=== PATIENT | female | born 1940 | race Caucasian/White ===

== ENCOUNTER → 2016-09-19 | Outpatient (CLI) | payer MEDICARE, MEDICAID ==
[2016-09-19 13:39] LABS: ABSOLUTE EOSINOPHILS # (AUTO) 0.1 10^3/uL (0.0-0.6); ABSOLUTE LYMPHOCYTES (AUTO) 3.7 10^3/uL (0.5-4.7); ABSOLUTE MONOCYTES (AUTO) 0.7 10^3/uL (0.1-1.4); ABSOLUTE NEUT (AUTO) 4.3 10^3/uL (1.7-8.2); BASOPHILS % (AUTO) 0.5 % (0-2); HEMATOCRIT 42.8 % (36.0-47.0); HEMOGLOBIN 13.6 g/dL (12.0-15.5); LYMPHOCYTES % (AUTO) 41.9 % (13-45); MEAN CORPUSCULAR HGB CONC 31.7 g/dL (32.0-36.0); MEAN CORPUSCULAR VOLUME 82 fl (80-97); MONOCYTES % (AUTO) 7.9 % (3-13); RED BLOOD COUNT 5.21 10^6/uL (3.72-5.28); RED CELL DISTRIBUTION WIDTH 14.5 % (11.5-14.0); SEGMENTED NEUTROPHILS % (AUTO) 48.7 % (42-78); WHITE BLOOD COUNT 8.8 10^3/uL (4.0-10.5)
[2016-09-19 14:03] LABS: ALANINE AMINOTRANSFERASE 24 U/L (9-52); ALBUMIN 4.5 g/dL (3.5-5.0); ALKALINE PHOSPHATASE 40 U/L (38-126); ANION GAP 13 (5-19); ASPARTATE AMINO TRANSFERASE 26 U/L (14-36); BILIRUBIN,DIRECT 0.4 mg/dL (0.0-0.4); BILIRUBIN,TOTAL 0.6 mg/dL (0.2-1.3); BLOOD UREA NITROGEN 28 mg/dL (7-20); CALCIUM 9.9 mg/dL (8.4-10.2); CARBON DIOXIDE 32 mmol/L (22-30); CHLORIDE 97 mmol/L (98-107); CREATININE RESULT 0.87 mg/dL (0.52-1.25); GLUCOSE 167 mg/dL (75-110); SODIUM 142.1 mmol/L (137-145)
== END ==
LOC: OD 12:15
PROVIDERS: ATTEND Orthopaedic Surgery Sports Medicine
DX: G56.02 Carpal tunnel syndrome, left upper limb (principal); Z11.2 Encounter for screening for other bacterial diseases; I10 Essential (primary) hypertension
CPT/HCPCS: 36415; 80053; 85025; 87070

== ENCOUNTER → 2017-05-03 | Outpatient (CLI) | payer MEDICARE, MEDICAID ==
--- NOTE | 2017-05-03 17:44 | WOMENS IMAGING REPORT ---
EXAM DESCRIPTION: 3D DX MAMMO BILAT; U/S BREAST UNILAT LIMITED COMPLETED DATE/TIME: 05/03/2017 10:11 am; 05/03/2017 11:38 am REASON FOR STUDY: SUBAREOLAR MASS OF L BREAST; N63.42; LEFT BREAST; N63.42 N63.42 UNSPECIFIED LUMP IN LEFT BREAST, SUBAREOLAR COMPARISON: Multiple since 2013 TECHNIQUE: Standard craniocaudal and mediolateral oblique views of each breast recorded using digita l acquisition and breast tomosynthesis. Cone compression left breast images, in the retroareolar region. Left breast 90 mediolateral view. Left breast ultrasound LIMITATIONS: None. FINDINGS: RIGHT BREAST MASSES: No suspicious masses. CALCIFICATIONS: No new or suspicious calcifications. ARCHITECTURAL DISTORTION: None. DEVELOPING DENSITY: None. ASYMMETRY: None noted. OTHER: No other significant findings. LEFT BREAST MASSES: 6 to 7 mm nodule in the left retroareolar region about the 7 to 8 o'clock position, with a si ngle microcalcification present. CALCIFICATIONS: No new or suspicious calcifications. ARCHITECTURAL DISTORTION: None. DEVELOPING DENSITY: None. ASYMMETRY: None noted. OTHER: Old stereotactic biopsy clip in the deep 6 o'clock position Read with the assistance of CAD: .[facility] - R2 Cenova Version 1.3 .[facility] - R2 Cenova Version 1.3 .[facility] - R2 Cenova Version 2.4 .[facility] [place] R2 Cenova Version 2.4 .[facility] - R2 Manager Animation Version 9.2 Left breast ultrasound: Ultrasound of the left retroareolar region was performed. Just deep to the skin surface, an anechoic cystic structure 6 mm in size is present with minimal internal debris. No internal color flow. Sin gle shadowing punctate calcification correlates with mammogram. This may represent a small hypoechoi c papilloma, short segment of dilated retroareolar duct, or a tiny skin related cyst such as a sebace ous cyst. Excisional biopsy recommended. IMPRESSION: No mammographic evidence for malignancy right breast. 6 to 7 mm complex cyst just deep to the skin surface left periareolar region. This is indeterminate for malignancy, and could be a short segment of dilated duct or a hypoechoic papilloma. A sebaceous cyst is also possible. Excisional biopsy is recommended. BREAST DENSITY: b. There are scattered areas of fibroglandular density. BIRAD: 4A-Suspicious abnormality: Lesion which may require intervention with low suspicion for penelope mccullough. RECOMMENDATION: RECOMMENDED FOLLOW UP: Palpable lesion could be surgically excised for biopsy. SPECIFIC INTERVENTION/IMAGING/CONSULTATION RECOMMENDED:Surgical consultation for excisional biopsy re commended COMMUNICATION:Patient notified by letter COMMENT: The patient has been notified of the results by letter per SA requirements. Additional no tification policies are in place for contacting patient with suspicious or incomplete findings. Quality ID #[id number]: The [employer] recommends an annual screening mammogram for women aged 40 years or over. This facility utilizes a reminder system to ensure that all patients receive reminder letters, and/or direct phone calls for appointments. This includes reminders for routine scr eening mammograms, diagnostic mammograms, or other Breast Imaging Interventions when appropriate. Th is patient will be placed in the appropriate reminder system. The [employer] (ACR) has developed recommendations for screening MRI of the breast s in certain patient populations, to be used in conjunction with mammography. Breast MRI surveillanc e may be appropriate for women with more than 20% lifetime risk of developing breast cancer as deter mined by genetic testing, significant family history of the disease, or history of mantle radiation f or Hodgkins Disease. ACR Practice Guidelines 2008. DBT Technology DBT is a type of tomographic mammography. With conventional mammography, overlapping breast tissue ma y make lesions difficult to detect, even with good compression. DBT uses an x-ray tube that rotates a round the breast, taking images at different angles. These images are then combined to create thin sl ices of the breast that the radiologist can view as a 3D reconstruction. The Springpad unit can perform full-field digital mammograms (2D imaging); or DBT (3D imaging); or both, in a combination mode that quickly performs both the mammogram and the tomosynthesis scan while the breast is still compressed. PQRS 6045F: Fluoroscopic imaging is not utilized for breast tomosynthesis. TECHNICAL DOCUMENTATION: FINDING NUMBER: (1) ASSESSMENT: (1) JOB ID: [id number] [employer] All Rights Reserved
--- NOTE | 2017-05-04 23:42 | WOMENS IMAGING REPORT ---
EXAM DESCRIPTION: 3D DX MAMMO BILAT; U/S BREAST UNILAT LIMITED COMPLETED DATE/TIME: 05/03/2017 10:11 am; 05/03/2017 11:38 am REASON FOR STUDY: SUBAREOLAR MASS OF L BREAST; N63.42; LEFT BREAST; N63.42 N63.42 UNSPECIFIED LUMP IN LEFT BREAST, SUBAREOLAR COMPARISON: Multiple since 2013 TECHNIQUE: Standard craniocaudal and mediolateral oblique views of each breast recorded using digita l acquisition and breast tomosynthesis. Cone compression left breast images, in the retroareolar region. Left breast 90 mediolateral view. Left breast ultrasound LIMITATIONS: None. FINDINGS: RIGHT BREAST MASSES: No suspicious masses. CALCIFICATIONS: No new or suspicious calcifications. ARCHITECTURAL DISTORTION: None. DEVELOPING DENSITY: None. ASYMMETRY: None noted. OTHER: No other significant findings. LEFT BREAST MASSES: 6 to 7 mm nodule in the left retroareolar region about the 7 to 8 o'clock position, with a si ngle microcalcification present. CALCIFICATIONS: No new or suspicious calcifications. ARCHITECTURAL DISTORTION: None. DEVELOPING DENSITY: None. ASYMMETRY: None noted. OTHER: Old stereotactic biopsy clip in the deep 6 o'clock position Read with the assistance of CAD: .[facility] - R2 Cenova Version 1.3 .[facility] Imaging - R2 Cenova Version 1.3 .[facility] Imaging - R2 Cenova Version 2.4 .[facility] [place] Cenova Version 2.4 .[facility] - R2 Trolley Cleaner Version 9.2 Left breast ultrasound: Ultrasound of the left retroareolar region was performed. Just deep to the skin surface, an anechoic cystic structure 6 mm in size is present with minimal internal debris. No internal color flow. Sin gle shadowing punctate calcification correlates with mammogram. This may represent a small hypoechoi c papilloma, short segment of dilated retroareolar duct, or a tiny skin related cyst such as a sebace ous cyst. Excisional biopsy recommended. IMPRESSION: No mammographic evidence for malignancy right breast. 6 to 7 mm complex cyst just deep to the skin surface left periareolar region. This is indeterminate for malignancy, and could be a short segment of dilated duct or a hypoechoic papilloma. A sebaceous cyst is also possible. Excisional biopsy is recommended. BREAST DENSITY: b. There are scattered areas of fibroglandular density. BIRAD: 4A-Suspicious abnormality: Lesion which may require intervention with low suspicion for penelope mccullough. RECOMMENDATION: RECOMMENDED FOLLOW UP: Palpable lesion could be surgically excised for biopsy. SPECIFIC INTERVENTION/IMAGING/CONSULTATION RECOMMENDED:Surgical consultation for excisional biopsy re commended COMMUNICATION:Patient notified by letter COMMENT: The patient has been notified of the results by letter per SA requirements. Additional no tification policies are in place for contacting patient with suspicious or incomplete findings. Quality ID #[id number]: The [employer] recommends an annual screening mammogram for women aged 40 years or over. This facility utilizes a reminder system to ensure that all patients receive reminder letters, and/or direct phone calls for appointments. This includes reminders for routine scr eening mammograms, diagnostic mammograms, or other Breast Imaging Interventions when appropriate. Th is patient will be placed in the appropriate reminder system. The [employer] (ACR) has developed recommendations for screening MRI of the breast s in certain patient populations, to be used in conjunction with mammography. Breast MRI surveillanc e may be appropriate for women with more than 20% lifetime risk of developing breast cancer as deter mined by genetic testing, significant family history of the disease, or history of mantle radiation f or Hodgkins Disease. ACR Practice Guidelines 2008. DBT Technology DBT is a type of tomographic mammography. With conventional mammography, overlapping breast tissue ma y make lesions difficult to detect, even with good compression. DBT uses an x-ray tube that rotates a round the breast, taking images at different angles. These images are then combined to create thin sl ices of the breast that the radiologist can view as a 3D reconstruction. The Fliptop unit can perform full-field digital mammograms (2D imaging); or DBT (3D imaging); or both, in a combination mode that quickly performs both the mammogram and the tomosynthesis scan while the breast is still compressed. PQRS 6045F: Fluoroscopic imaging is not utilized for breast tomosynthesis. TECHNICAL DOCUMENTATION: FINDING NUMBER: (1) ASSESSMENT: (1) JOB ID: [id number] [employer]- All Rights Reserved
== END ==
LOC: WI 09:28
PROVIDERS: ATTEND Physician Assistant
DX: N63.42 Unspecified lump in left breast, subareolar (principal)
CPT/HCPCS: 76642; 77066; G0279; 77062

== ENCOUNTER → 2017-06-26 | Outpatient (CLI) | payer MEDICARE, MEDICAID ==
[2017-06-26 15:48] LABS: ABSOLUTE BASOPHILS # (AUTO) 0.1 10^3/uL (0.0-0.2); ABSOLUTE EOSINOPHILS # (AUTO) 0.1 10^3/uL (0.0-0.6); ABSOLUTE LYMPHOCYTES (AUTO) 3.8 10^3/uL (0.5-4.7); ABSOLUTE MONOCYTES (AUTO) 0.9 10^3/uL (0.1-1.4); ABSOLUTE NEUT (AUTO) 4.4 10^3/uL (1.7-8.2); BASOPHILS % (AUTO) 0.9 % (0-2); EOSINOPHILS % (AUTO) 1.2 % (0-6); HEMATOCRIT 39.9 % (36.0-47.0); HEMOGLOBIN 13.2 g/dL (12.0-15.5); LYMPHOCYTES % (AUTO) 41.3 % (13-45); MEAN CORPUSCULAR HEMOGLOBIN 26.8 pg (27.0-33.4); MEAN CORPUSCULAR VOLUME 81 fl (80-97); MONOCYTES % (AUTO) 9.7 % (3-13); PLATELET COUNT 245 10^3/uL (150-450); RED BLOOD COUNT 4.92 10^6/uL (3.72-5.28); RED CELL DISTRIBUTION WIDTH 14.8 % (11.5-14.0); SEGMENTED NEUTROPHILS % (AUTO) 46.9 % (42-78); TOTAL CELLS COUNTED % (AUTO) 100 %; WHITE BLOOD COUNT 9.3 10^3/uL (4.0-10.5)
[2017-06-26 16:09] LABS: ALANINE AMINOTRANSFERASE 31 U/L (9-52); ALBUMIN 4.5 g/dL (3.5-5.0); ALKALINE PHOSPHATASE 34 U/L (38-126); ANION GAP 14 (5-19); ASPARTATE AMINO TRANSFERASE 35 U/L (14-36); BILIRUBIN,DIRECT 0.6 mg/dL (0.0-0.4); BILIRUBIN,TOTAL 0.7 mg/dL (0.2-1.3); BLOOD UREA NITROGEN 43 mg/dL (7-20); CALCIUM 9.6 mg/dL (8.4-10.2); CARBON DIOXIDE 27 mmol/L (22-30); CHLORIDE 104 mmol/L (98-107); GLUCOSE 50 mg/dL (75-110); POTASSIUM 4.8 mmol/L (3.6-5.0); SODIUM 144.5 mmol/L (137-145); TOTAL PROTEIN 7.5 g/dL (6.3-8.2)
--- NOTE | 2017-06-26 23:43 | EKG REPORT ---
SEVERITY:- NORMAL ECG - SINUS RHYTHM : Confirmed by: Marjan Pickard 26-Jun-2017 23:42:33
== END ==
LOC: OD 14:35
PROVIDERS: ATTEND Orthopaedic Surgery Sports Medicine
DX: I10 Essential (primary) hypertension (principal); Z11.2 Encounter for screening for other bacterial diseases
CPT/HCPCS: 36415; 80053; 85025; 87070; 93005; 93010

== ENCOUNTER 2017-09-11 11:19 | Emergency (ER) | payer MEDICARE, MEDICAID ==
[2017-09-11 11:53] LABS: ABSOLUTE BASOPHILS # (AUTO) 0.1 10^3/uL (0.0-0.2); ABSOLUTE EOSINOPHILS # (AUTO) 0.1 10^3/uL (0.0-0.6); ABSOLUTE LYMPHOCYTES (AUTO) 3.2 10^3/uL (0.5-4.7); ABSOLUTE MONOCYTES (AUTO) 1.2 10^3/uL (0.1-1.4); ABSOLUTE NEUT (AUTO) 7.9 10^3/uL (1.7-8.2); HEMATOCRIT 38.2 % (36.0-47.0); HEMOGLOBIN 12.6 g/dL (12.0-15.5); LYMPHOCYTES % (AUTO) 25.5 % (13-45); MEAN CORPUSCULAR HEMOGLOBIN 26.6 pg (27.0-33.4); MEAN CORPUSCULAR HGB CONC 32.9 g/dL (32.0-36.0); MEAN CORPUSCULAR VOLUME 81 fl (80-97); MONOCYTES % (AUTO) 9.7 % (3-13); PLATELET COUNT 269 10^3/uL (150-450); RED BLOOD COUNT 4.72 10^6/uL (3.72-5.28); RED CELL DISTRIBUTION WIDTH 14.4 % (11.5-14.0); SEGMENTED NEUTROPHILS % (AUTO) 62.8 % (42-78); TOTAL CELLS COUNTED % (AUTO) 100 %; WHITE BLOOD COUNT 12.6 10^3/uL (4.0-10.5)
[2017-09-11 11:59] LABS: INTERNATIONAL RATION (INR) 0.83; PROTHROMBIN TIME 11.8 SEC (11.4-15.4)
[2017-09-11 12:00] LABS: PARTIAL THROMBOPLASTIN TIME 27.7 SEC (23.5-35.8)
--- NOTE | 2017-09-11 12:01 | ER Document Report ---
ED Neuro Symptoms/Deficit - General Chief Complaint: S/S of Possible Stroke Stated Complaint: PAIN IN RIGHT SIDE, NAUSEOUS Time Seen by Provider: 09/11/17 11:40 Mode of Arrival: Ambulatory Information source: Patient, Relative Notes: Patient is a 77-year-old female who presents to the ER today for numbness and tingling that has increased to her right hand and leg along with some nausea and lightheadedness this morning around 10:30 AM. Patient had strokelike symptoms of heaviness and numbness and tingling on the right side of her body one week ago, went to [facility], was admitted and had carotid ultrasound as well as MRI which were all negative for stroke. Patient states that that was all resolving whenever this morning around 1030 she had some numbness and tingling the increased again to that same side. She denies any weakness but admits to some heaviness of the right arm and leg. 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 She denies any vomiting. She does admit to right-sided headache which she also had 1 week ago when she was admitted at [facility]. Patient has a history of high blood pressure, high cholesterol. They did increase her aspirin to 325 mg when she was discharged from [facility]. Patient states that all symptoms at this time are resolving since this morning. TRAVEL OUTSIDE OF THE [place] IN LAST 30 DAYS: No - Related Data Allergies/Adverse Reactions: diazepam [From Valium] Allergy (Verified 09/11/17 11:20) hydromorphone [From Dilaudid] Allergy (Verified 09/11/17 11:20) promethazine [From Phenergan] Allergy (Verified 09/11/17 11:20) Past Medical History - General Information source: Patient - Social History Smoking Status: Never Smoker Family History: Reviewed & Not Pertinent Review of Systems - Review of Systems Constitutional: No symptoms reported EENT: No symptoms reported Cardiovascular: No symptoms reported Respiratory: No symptoms reported Gastrointestinal: No symptoms reported Genitourinary: No symptoms reported Female Genitourinary: No symptoms reported Musculoskeletal: No symptoms reported Skin: No symptoms reported Hematologic/Lymphatic: No symptoms reported Neurological/Psychological: See HPI Physical Exam - Vital signs Vitals: Pulse Ox 95 09/11/17 11:35 - Notes Notes: PHYSICAL EXAMINATION: GENERAL: Well-appearing and in no acute distress. HEAD: Atraumatic, normocephalic. EYES: Pupils equal round and reactive to light, extraocular movements intact, sclera anicteric, conjunctiva are normal. ENT: ear canals without erythema or foreign body, TMs pearly tilley with good bony landmarks, nares patent, oropharynx clear without exudates. Moist mucous membranes. NECK: Normal range of motion, supple without lymphadenopathy LUNGS: CTAB and equal. No wheezes rales or rhonchi. HEART: Regular rate and rhythm without murmurs ABDOMEN: Soft, no tenderness. No guarding, no rebound BACK: no vertebral tenderness, normal ROM GI/: no CVA tenderness EXTREMITIES: Normal range of motion, no pitting edema. No cyanosis. NEUROLOGICAL: Cranial nerves grossly intact. Normal sensory/motor exams. Good and equal strength bilaterally, Kernig and Brudzinski's signs negative, Romberg' s test normal, normal heel to fernandes testing PSYCH: Normal mood, normal affect. SKIN: Warm, Dry, normal turgor, no rashes or lesions noted Course - Re-evaluation Re-evalutation: 09/11/17 13:24 Patient has a completely normal neurological exam, good and equal strength bilaterally, normal Romberg testing, she states that symptoms are resolving. CAT scan of the head was negative for any acute pathology again today. Lab work is all unremarkable. I did give patient the option of being admitted for observation for strokelike symptoms and possible TIA here but she declines stating "I have somebody who can watch me all the time at home and I would rather go home." Patient lives 20 minutes away from here and was encouraged to call 911 or have someone bring her immediately if she gets worsening symptoms. I also advised that she have the people she lives with wake her up multiple times throughout the night to check on her mental status and she and daughter both agree to this. - Vital Signs Vital signs: Temp Pulse Resp BP Pulse Ox 74 25 H 147/85 H 98 09/11/17 11:45 09/11/17 11:45 09/11/17 11:45 09/11/17 11:45 - Laboratory Result Diagrams: 09/11/17 11:46 09/11/17 11:46 Laboratory results interpreted by me: 06/04/18 11:46 WBC 12.6 H MCH 26.6 L RDW 14.4 H ED NIH Stroke Scale - NIH Stroke Scale *: 1. NIH scale should be completed with appropriate accompanying assessment tools. *: 2. The NIH should reflect what the patient is capable of doing and should not be coached by the clinician. 1a. Level of Consciousness: 0=Alert;keenly responsive -: 1=Drowsy -: 2=Obtunded -: 3=Coma/unresponsive or reflex to noxious stimuli. 1a. Responses: 0 1b. Orientation Questions: a. What month is it? -: b. How old are you? -: 0=Answers both questions correctly. -: 1=Answers one question correctly or patient is intubated or has orotracheal trauma. -: 2=Answers neither question correctly. 1b. Responses: 0 1c. Response to commands: a. Open and close eyes? -: b. Chief Contract Officer and release hand? -: Credit is given despite weakness. Demonstration of task is permitted. Substitute command if hands cannot be used. -: 0=Performs both tasks correctly -: 1=Performs one task correctly -: 2=Performs neither task correctly 1c. Responses: 0 2. Gaze: Establish eye contact and instruct patient to "Follow my finger" -: 0=Normal -: 1=Partial gaze palsy. Gaze is abnormal in one or both eyes, but where forced deviation or total gaze paresis is not present. -: 2=Forced deviation or total gaze paresis. 2. Responses: 0 3. Visual Pacheco: Sees fingers in all four quadrants. -: 0=No visual loss. -: 1=Partial hemianopsia. -: 2=Complete hemianopsia. -: 3=Bilateral hemianopsia (including Cortical blindness) 3. Responses: 0 4. Facial Movement: Instruct patient to: -: a. Show me your teeth -: b. Raise your eyebrows -: c. Close your eyes -: d. Smile -: 0=Normal symmetrical movement -: 1=Minor paralysis (flattened nasolabial fold, asymmetry on smiling). -: 2=Partial paralysis (total or near total paralysis of lower face). -: 3=Complete paralysis of upper and lower face 4. Responses: 0 5. Motor functions (left arm): Alternate sides and extend each arm with palms down (90 degrees if sitting or 45 degrees for supine). -: 0=No drift;limb holds for full 10 seconds. -: 1=Drift; limb holds but drifts down before full 10 seconds, but does not hit bed. -: 2=Some effort against gravity; limb cannot get to or maintain position. -: 3=No effort against gravity; limb falls. -: 4=No movement. -: UN=Amputation, joint fusion, explain in comments. 5. Responses (left arm): 0 5. Motor Functions (right arm): Alternate sides and extend each arm with palms down (90 degrees if sitting or 45 degrees for supine). -: 0=No drift;limb holds for full 10 seconds. -: 1=Drift; limb holds but drifts down before full 10 seconds, but does not hit bed. -: 2=Some effort against gravity; limb cannot get to or maintain position. -: 3=No effort against gravity; limb falls. -: 4=No movement. -: UN=Amputation, joint fusion, explain in comments. 5. Responses (right arm): 0 6. Motor Functions (left leg): With patient lying supine, alternate sides and extend each leg (30 degrees always while supine). -: 0=No drift, leg holds position for full 5 seconds -: 1=Drift; leg falls before full 5 seconds but does not hit bed. -: 2=Some effort against gravity, leg falls to bed but some effort against gravity. -: 3=No effort against gravity, leg falls to bed immediately. -: 4=No movement. -: UN=Amputation, joint fusion; explain in comments. 6. Responses (left leg): 0 6. Motor Functions (right leg): With patient lying supine, alternate sides and extend each leg (30 degrees always while supine). -: 0=No drift, leg holds position for full 5 seconds -: 1=Drift; leg falls before full 5 seconds but does not hit bed. -: 2=Some effort against gravity, leg falls to bed but some effort against gravity. -: 3=No effort against gravity, leg falls to bed immediately. -: 4=No movement. -: UN=Amputation, joint fusion; explain in comments. 6. Responses (right leg): 0 7. Limb Ataxia: With eyes open instruct patient to: -: a. "Touch your finger to your nose". -: b. "Touch your heel to your fernandes" -: 0=Absent -: 1=Present in one limb. -: 2=Present in two limbs. -: UN=Amputation or joint fusion; explain in comments. 7. Responses: 0 8. Sensory: Test sensation using pinprick or noxious stimuli. Test as many body parts as possible. -: 0=Normal;no sensory loss -: 1=Mile to moderate sensory loss (patient feels pin prick but is less sharp on affected side). -: 2=Severe or total sensory loss. 8. Responses: 0 9. Best Language: Instruct patient to: -: a. "Describe what you see in this picture." -: b. "Name the items in this picture." -: c. "Read these sentences." -: 0=No aphasia, normal -: 1=Mild to moderate aphasia. -: 2=Severe aphasia -: 3=Mute, global aphasia, no usable speech or auditory comprehension. 9. Responses: 0 10. Articulation, Dysarthia: Instruct patient to: -: "Read these words" or "Repeat these words" -: 0=Normal -: 1=Mild to moderate; patient may slur some words but can be understood without difficulty. -: 2=Severe; patients speech so slurred as to be unintelligible in the absence of dysphasia. -: UN=Intubated or other physical barrier, explain in comments. 10. Responses: 0 11. Extinction or inattention: 0=No abnormality -: 1= Visual, tactile, auditory, spatial, or personal inattention or extinction to bilateral simulation in one or the sensory modalities. -: 2=Profound tano-inattention or tano-inattention to more than one modality; does not recognize own hand. 11. Responses: 0 Total Score: 0 Discharge - Discharge Clinical Impression: Stroke-like episode Condition: Stable Disposition: HOME, SELF-CARE Additional Instructions: Return immediately for any new or worsening symptoms. Follow up with primary care provider, call tomorrow to make followup appointment. Referrals: LINN IBARRA MD [Primary Care Provider] - Follow up as needed
--- NOTE | 2017-09-11 12:12 | RADIOLOGY REPORT (SQ) ---
EXAM DESCRIPTION: CT HEAD WITHOUT COMPLETED DATE/TIME: 09/11/2017 11:35 am REASON FOR STUDY: right side weakness COMPARISON: None. TECHNIQUE: Axial images acquired through the brain without intravenous contrast. Images reviewed wi th bone, brain and subdural windows. Additional sagittal and coronal reconstructions were generated. Images stored on PACS. All CT scanners at this facility use dose modulation, iterative reconstruction, and/or weight based d osing when appropriate to reduce radiation dose to as low as reasonably achievable (ALARA). [facility]: Dose Right [facility]: CareDose [facility]: Dose Right [facility]: Teradose 4D [facility]: Smart [employer] RADIATION DOSE: CT Rad equipment meets quality standard of care and radiation dose reduction techniq ues were employed. CTDIvol: 53.2 mGy. DLP: 991 mGy-cm. mGy. LIMITATIONS: None. FINDINGS: VENTRICLES: Normal size and contour. CEREBRUM: No masses. No hemorrhage. No midline shift. No evidence for acute infarction. Areas of l ow density in the white matter most likely chronic small vessel ischemic changes. CEREBELLUM: No masses. No hemorrhage. No alteration of density. No evidence for acute infarction. EXTRAAXIAL SPACES: No fluid collections. No masses. ORBITS AND GLOBE: No intra- or extraconal masses. Normal contour of globe without masses. CALVARIUM: No fracture. PARANASAL SINUSES: No fluid or mucosal thickening. SOFT TISSUES: No mass or hematoma. OTHER: No other significant finding. IMPRESSION: MILD CHRONIC MICROVASCULAR ISCHEMIA. NO ACUTE IMAGING FINDINGS IN THE BRAIN. EVIDENCE OF ACUTE STROKE: NO. COMMENT: Findings were discussed with YAJAIRA Acevedo, at 1206 hours on this date. Quality ID # [id number]: Final reports with documentation of one or more dose reduction techniques (e.g., Au tomated exposure control, adjustment of the mA and/or kV according to patient size, use of iterative reconstruction technique) TECHNICAL DOCUMENTATION: JOB ID: [id number] [employer]- All Rights Reserved Reading location - IP/workstation name: [email or web address]
--- NOTE | 2017-09-11 12:15 | RADIOLOGY REPORT (SQ) ---
EXAM DESCRIPTION: CHEST SINGLE VIEW COMPLETED DATE/TIME: 09/11/2017 11:44 am REASON FOR STUDY: stroke s/s COMPARISON: None. EXAM PARAMETERS: NUMBER OF VIEWS: One view. TECHNIQUE: Single frontal radiographic view of the chest acquired. RADIATION DOSE: NA LIMITATIONS: None. FINDINGS: LUNGS AND PLEURA: Mild chronic interstitial changes are present. There is no infiltrate o r effusion. There is no mass. MEDIASTINUM AND HILAR STRUCTURES: No masses. Contour normal. HEART AND VASCULAR STRUCTURES: Heart normal in size. Normal vasculature. BONES: No acute findings. HARDWARE: Sternotomy wires. OTHER: No other significant finding. IMPRESSION: Mild chronic lung changes with no acute cardiopulmonary disease. TECHNICAL DOCUMENTATION: JOB ID: [id number] [employer]- All Rights Reserved Reading location - IP/workstation name: [email or web address]
[2017-09-11 12:16] LABS: ALANINE AMINOTRANSFERASE 29 U/L (9-52); ALBUMIN 4.1 g/dL (3.5-5.0); ALKALINE PHOSPHATASE 40 U/L (38-126); ANION GAP 11 (5-19); ASPARTATE AMINO TRANSFERASE 35 U/L (14-36); BILIRUBIN,DIRECT 0.6 mg/dL (0.0-0.4); BILIRUBIN,TOTAL 0.6 mg/dL (0.2-1.3); BLOOD UREA NITROGEN 27 mg/dL (7-20); CALCIUM 9.5 mg/dL (8.4-10.2); CARBON DIOXIDE 27 mmol/L (22-30); CHLORIDE 103 mmol/L (98-107); CREATINE KINASE 58 U/L (30-135); GLUCOSE 280 mg/dL (75-110); POTASSIUM 5.3 mmol/L (3.6-5.0); TOTAL PROTEIN 7.1 g/dL (6.3-8.2)
[2017-09-11 12:28] LABS: CREATINE KINASE MB 1.75 ng/mL (<4.55)
[2017-09-11 12:43] LABS: TROPONIN I < 0.012 ng/mL
[2017-09-11 14:10] VITALS: BP 197/96
--- NOTE | 2017-09-11 19:58 | EKG REPORT ---
SEVERITY:- ABNORMAL ECG - SINUS RHYTHM ATRIAL PREMATURE COMPLEX LVH W/ REPOL ABNORMALITIES, POSSIBLE ISCHEMIA : Confirmed by: Fouzia Degroot MD 11-Sep-2017 19:57:53
== END 2017-09-11 14:10 | disposition home or self-care (01) ==
LOC: ER 11:19
DX: G45.9 Transient cerebral ischemic attack, unspecified (principal); R11.0 Nausea; R20.0 Anesthesia of skin; R42 Dizziness and giddiness; R29.700 NIHSS score 0; Z79.82 Long term (current) use of aspirin
CPT/HCPCS: 36415; 70450; 71045; 80053; 82550; 82553; 84484; 85025; 85610; 85730; 93005; 93010; 99285

== ENCOUNTER → 2018-04-25 | Outpatient (CLI) | payer MEDICARE, MEDICAID ==
--- NOTE | 2018-04-25 14:04 | RADIOLOGY REPORT (SQ) ---
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 TECHNIQUE: Axial images acquired through the lumbar spine without intravenous contrast. Images revi ewed with lung, soft tissue and bone windows. Reconstructed coronal and sagittal MPR images reviewe d. All images stored on PACS. All CT scanners at this facility use dose modulation, iterative reconstruction, and/or weight based d osing when appropriate to reduce radiation dose to as low as reasonably achievable (ALARA). [facility]: Dose Right [facility]: CareDose [facility]: Dose Right [facility]: Teradose 4D [facility]: [employer] RADIATION DOSE: CT Rad equipment meets quality standard of care and radiation dose reduction techniq ues were employed. CTDIvol: 30.3 mGy. DLP: 982 mGy-cm. mGy. LIMITATIONS: None. FINDINGS: SEGMENTATION: Normal. No transitional anatomy. ALIGNMENT: Scoliosis, convex to the left. VERTEBRAL BODIES: No fractures. No dislocation. No acute findings. DISCS: Study limited by lack of intrathecal contrast. L1-L2: Vacuum change. Diffuse posterior disc bulge. Facet arthropathy. Moderate spinal stenosis an d exit foraminal stenosis. L2-L3: Back unchanged. Diffuse posterior disc bulge. Facet arthropathy. Moderate spinal stenosis a nd exit foraminal stenosis, worse on the right. L3-L4: Mild diffuse posterior disc bulge. Decompressive laminectomy. Facet arthropathy. No signifi cant spinal stenosis. Mild exit foraminal stenosis. L4-L5: Mild diffuse posterior disc bulge. Decompressive laminectomy. Facet arthropathy. No signifi cant spinal stenosis. Mild exit foraminal stenosis. L5-S1: Mild diffuse posterior disc bulge. Decompressive laminectomy. Facet arthropathy. No signifi cant spinal stenosis. Mild to moderate exit foraminal stenosis. PEDICLES, TRANSVERSE PROCESSES: No fractures. No dislocation. No acute findings. FACETS, POSTERIOR ELEMENTS: No fractures. No dislocation. Laminectomy changes in the lower lumbar spine with posterior fusion. HARDWARE: Posterior hardware at L 3, L4, L 5, and S1. VISUALIZED RIBS: No fractures. SOFT TISSUES: No significant or acute finding in adjacent soft tissues. OTHER: No other significant finding. IMPRESSION: SURGICAL CHANGES IN THE LOWER LUMBAR SPINE WITH DECOMPRESSIVE LAMINECTOMY, POSTERIOR FUS ION, AND HARDWARE. MULTILEVEL DEGENERATIVE CHANGES DESCRIBED ABOVE. TECHNICAL DOCUMENTATION: JOB ID: [id number] Quality ID # [id number]: Final reports with documentation of one or more dose reduction techniques (e.g., Au tomated exposure control, adjustment of the mA and/or kV according to patient size, use of iterative reconstruction technique) 2010 [employer]- All Rights Reserved Reading location - IP/workstation name: [email or web address] BEDS AT THE [facility]
== END ==
LOC: RAD 12:45
PROVIDERS: ATTEND Physician Assistant
DX: M53.86 Other specified dorsopathies, lumbar region (principal); M51.36 Other intervertebral disc degeneration, lumbar region
CPT/HCPCS: 72131

== ENCOUNTER → 2018-09-20 | Outpatient (CLI) | payer MEDICARE, MEDICAID ==
--- NOTE | 2018-09-20 14:56 | RADIOLOGY REPORT (SQ) ---
EXAM DESCRIPTION: L SPINE 2 VIEWS COMPLETED DATE/TIME: 09/20/2018 2:11 pm REASON FOR STUDY: LUMBAR RADICULOPATHY COMPARISON: None. NUMBER OF VIEWS: Two views. TECHNIQUE: AP and lateral radiographic images acquired of the lumbar spine. LIMITATIONS: None. FINDINGS: MINERALIZATION: Normal. SEGMENTATION: Normal. No transitional anatomy. ALIGNMENT: Levoscoliosis at L2-3. This also focal kyphosis at this level. VERTEBRAE: Maintained height. No fracture or worrisome bone lesion. DISCS: Disc space narrowing at L1-2 and L2-3. A disc implant is present at L3-4. There is narrowing of the L5-S1 disc space with a disc implant. POSTERIOR ELEMENTS: Laminectomy changes at L4 and L5. Lateral fusions. HARDWARE: Posterior rods from L3-S1 with screws through the pedicles. PARASPINAL SOFT TISSUES: Normal. PELVIS: Intact as visualized. No fractures or worrisome bone lesions. SI joints intact. OTHER: No other significant finding. IMPRESSION: Scoliosis. Focal kyphosis. Degenerative disc disease. Spondylosis. Surgical changes. No acute finding. TECHNICAL DOCUMENTATION: JOB ID: [id number] [employer] All Rights Reserved Reading location - IP/workstation name: [email or web address]
--- NOTE | 2018-09-20 15:11 | RADIOLOGY REPORT (SQ) ---
EXAM DESCRIPTION: L SPINE FLEX/EXT ONLY COMPLETED DATE/TIME: 09/20/2018 2:11 pm REASON FOR STUDY: LUMBAR RADICULOPATHY COMPARISON: Two-view lumbar spine radiographs 09/20/2018 NUMBER OF VIEWS: Two views TECHNIQUE: Lateral views were obtained in flexion and extension. LIMITATIONS: None. FINDINGS: ALIGNMENT: Focal kyphosis at L2-3. FLEXION/EXTENSION: No instability. HARDWARE: Posterior rods from L2-S1 with screws through the pedicles. OTHER: No other significant finding. IMPRESSION: NO INSTABILITY ON FLEXION/EXTENSION. TECHNICAL DOCUMENTATION: JOB ID: [id number] [employer]- All Rights Reserved Reading location - IP/workstation name: [email or web address]
== END ==
LOC: RAD 13:48
PROVIDERS: ATTEND Specialist
DX: M51.16 Intervertebral disc disorders with radiculopathy, lumbar region (principal); M47.896 Other spondylosis, lumbar region; M41.86 Other forms of scoliosis, lumbar region
CPT/HCPCS: 72100; 72120

== ENCOUNTER 2018-12-20 12:27 | Emergency (ER) | payer MEDICARE, MEDICAID ==
--- NOTE | 2018-12-20 12:56 | ER Document Report ---
ED Medical Screen (RME) - General Chief Complaint: Chest Pain Stated Complaint: ARM PAIN/CHEST PAIN Time Seen by Provider: 12/20/18 12:38 Primary Care Provider: FRANCIE JO PA-C [Primary Care Provider] - Follow up as needed Mode of Arrival: Ambulatory Information source: Patient Notes: 78-year-old female presented to ED for chest pain that goes down her left arm down under her left arm and the scapular area. She states this started 2 days ago. She states this is a new pain it is not some she had before. She had previous open heart surgery primary bypass with 2 stents. She has had blood pressure and high cholesterol. Patient is alert and oriented he is able to answer my questions respirations are regular and unlabored at this time. She states she does have back problems and working on getting a stimulator and it is difficult for her to walk. She states she took a repeat 25 mg aspirin around 10:00. I have greeted and performed a rapid initial assessment of this patient. A comprehensive ED assessment and evaluation of the patient, analysis of test results and completion of medical decision making process will be conducted by an additional ED providers. TRAVEL OUTSIDE OF THE [place] IN LAST 30 DAYS: No - Related Data Allergies/Adverse Reactions: diazepam [From Valium] Allergy (Verified 12/20/18 12:28) hydromorphone [From Dilaudid] Allergy (Verified 12/20/18 12:28) promethazine [From Phenergan] Allergy (Verified 12/20/18 12:28) Past Medical History Renal/ Medical History: Denies: Hx Peritoneal Dialysis Physical Exam - Vital signs Vitals: Temp Pulse Resp BP Pulse Ox 97.9 F 77 16 136/79 H 93 12/20/18 12:31 12/20/18 12:31 12/20/18 12:31 12/20/18 12:31 12/20/18 12:31 Course - Vital Signs Vital signs: Temp Pulse Resp BP Pulse Ox 97.9 F 77 16 136/79 H 93 12/20/18 12:31 12/20/18 12:31 12/20/18 12:31 12/20/18 12:31 12/20/18 12:31 Doctor's Discharge - Discharge Referrals: FRANCIE JO PA-C [Primary Care Provider] - Follow up as needed
[2018-12-20] MEDS ORDERED: ASPIRIN 81 MG TABLET, CHEWABLE PO ONE (13:17)
[2018-12-20 13:40] LABS: ABSOLUTE BASOPHILS # (AUTO) 0.1 10^3/uL (0.0-0.2); ABSOLUTE LYMPHOCYTES (AUTO) 3.5 10^3/uL (0.5-4.7); ABSOLUTE MONOCYTES (AUTO) 1.7 10^3/uL (0.1-1.4); ABSOLUTE NEUT (AUTO) 8.4 10^3/uL (1.7-8.2); BASOPHILS % (AUTO) 0.9 % (0-2); EOSINOPHILS % (AUTO) 0.2 % (0-6); HEMATOCRIT 41.4 % (36.0-47.0); HEMOGLOBIN 13.4 g/dL (12.0-15.5); LYMPHOCYTES % (AUTO) 25.5 % (13-45); MEAN CORPUSCULAR HEMOGLOBIN 23.6 pg (27.0-33.4); MEAN CORPUSCULAR HGB CONC 32.3 g/dL (32.0-36.0); MEAN CORPUSCULAR VOLUME 73 fl (80-97); MONOCYTES % (AUTO) 12.6 % (3-13); PLATELET COUNT 256 10^3/uL (150-450); RED BLOOD COUNT 5.67 10^6/uL (3.72-5.28); RED CELL DISTRIBUTION WIDTH 16.7 % (11.5-14.0); SEGMENTED NEUTROPHILS % (AUTO) 60.8 % (42-78); TOTAL CELLS COUNTED % (AUTO) 100 %; WHITE BLOOD COUNT 13.8 10^3/uL (4.0-10.5)
[2018-12-20 13:43] LABS: INTERNATIONAL RATION (INR) 1.05; PROTHROMBIN TIME 13.7 SEC (11.4-15.4)
[2018-12-20 13:44] LABS: PARTIAL THROMBOPLASTIN TIME 33.4 SEC (23.5-35.8)
--- NOTE | 2018-12-20 13:54 | RADIOLOGY REPORT (SQ) ---
EXAM DESCRIPTION: CHEST 2 VIEWS COMPLETED DATE/TIME: 12/20/2018 1:38 pm REASON FOR STUDY: chest pain COMPARISON: 09/11/2017. EXAM PARAMETERS: NUMBER OF VIEWS: two views TECHNIQUE: Digital Frontal and Lateral radiographic views of the chest acquired. RADIATION DOSE: NA LIMITATIONS: none FINDINGS: LUNGS AND PLEURA: Mild chronic interstitial changes may No opacities, masses or pneumothor ax. No pleural effusion. MEDIASTINUM AND HILAR STRUCTURES: No masses or contour abnormalities. HEART AND VASCULAR STRUCTURES: Heart normal size. No evidence for failure. BONES: No acute findings. HARDWARE: Sternotomy wires. Hardware in the right shoulder. Clips in the upper abdomen. OTHER: No other significant finding. IMPRESSION: NO ACUTE RADIOGRAPHIC FINDING IN THE CHEST. TECHNICAL DOCUMENTATION: JOB ID: [id number] [employer]- All Rights Reserved Reading location - IP/workstation name: [email or web address]
[2018-12-20 14:05] LABS: ALBUMIN 4.5 g/dL (3.5-5.0); ALKALINE PHOSPHATASE 63 U/L (38-126); ANION GAP 13 (5-19); ASPARTATE AMINO TRANSFERASE 26 U/L (14-36); BILIRUBIN,DIRECT 0.2 mg/dL (0.0-0.4); BILIRUBIN,TOTAL 1.3 mg/dL (0.2-1.3); BLOOD UREA NITROGEN 20 mg/dL (7-20); CALCIUM 9.7 mg/dL (8.4-10.2); CARBON DIOXIDE 26 mmol/L (22-30); CHLORIDE 99 mmol/L (98-107); CREATINE KINASE 178 U/L (30-135); GLUCOSE 200 mg/dL (75-110); POTASSIUM 4.5 mmol/L (3.6-5.0); TOTAL PROTEIN 7.7 g/dL (6.3-8.2)
[2018-12-20 14:15] LABS: CREATINE KINASE MB 1.56 ng/mL (<4.55); TROPONIN I < 0.012 ng/mL
[2018-12-20] MEDS ORDERED: HYDROCODONE/ACETAMINOPHEN 10-325 MG TABLET PO ONE (16:57)
--- NOTE | 2018-12-20 17:08 | ER Document Report ---
ED General - General Chief Complaint: Chest Pain Stated Complaint: ARM PAIN/CHEST PAIN Time Seen by Provider: 12/20/18 12:38 Primary Care Provider: FRANCIE JO PA-C [NO LOCAL MD] - Follow up as needed Mode of Arrival: Ambulatory Notes: RME NOTE: 78-year-old female presented to ED for chest pain that goes down her left arm down under her left arm and the scapular area. She states this started 2 days ago. She states this is a new pain it is not some she had before. She had previous open heart surgery primary bypass with 2 stents. She has had blood pressure and high cholesterol. Patient is alert and oriented he is able to answer my questions respirations are regular and unlabored at this time. She states she does have back problems and working on getting a stimulator and it is difficult for her to walk. She states she took a repeat 25 mg aspirin around 10:00. MY HPI: Patient is a 78-year-old female presents to the emergency department for left mid axillary pain as well as left scapular pain. Patient states she sees pain management for chronic back pain. States she was started on hydrocodone 7.5mg "a long time ago." States the last time she saw pain management they switched her hydrocodone to Zohydro ER which is an extended release hydrocodone. Patient states she feels as though this pain regimen is not working like her past pain regimen. Patient states she has been pushing herself up with both arms recently due to her generalized to lower back pain. States approximately 3 days ago she started with left scapular pain that radiates underneath her left axilla. Patient is also complaining of left lateral lower rib pain. Patient states it is constant and hurts more upon palpation and when she rotates her left shoulder. Patient's denying any known injuries just that she has been using bilateral arms more so than normal to help herself sit up. TRAVEL OUTSIDE OF THE [place] IN LAST 30 DAYS: No - Related Data Allergies/Adverse Reactions: diazepam [From Valium] Allergy (Verified 12/20/18 12:28) hydromorphone [From Dilaudid] Allergy (Verified 12/20/18 12:28) promethazine [From Phenergan] Allergy (Verified 12/20/18 12:28) Past Medical History - General Information source: Patient - Social History Smoking Status: Never Smoker Frequency of alcohol use: None Drug Abuse: None Family History: Reviewed & Not Pertinent Patient has suicidal ideation: No Patient has homicidal ideation: No Renal/ Medical History: Denies: Hx Peritoneal Dialysis Review of Systems - Review of Systems Constitutional: denies: Fever EENT: No symptoms reported Cardiovascular: See HPI Respiratory: No symptoms reported Gastrointestinal: No symptoms reported Genitourinary: No symptoms reported Female Genitourinary: No symptoms reported Musculoskeletal: See HPI Skin: No symptoms reported Hematologic/Lymphatic: No symptoms reported Neurological/Psychological: No symptoms reported Physical Exam - Vital signs Vitals: Temp Pulse Resp BP Pulse Ox 97.9 F 77 16 136/79 H 93 12/20/18 12:31 12/20/18 12:31 12/20/18 12:31 12/20/18 12:12/20/18 12:31 - Notes Notes: GENERAL: Alert, interacts well. No acute distress. HEAD: Normocephalic, atraumatic. EYES: Pupils equal, round, and reactive to light. Extraocular movements intact. ENT: Oral mucosa moist, tongue midline. NECK: Full range of motion. Supple. Trachea midline. LUNGS: Clear to auscultation bilaterally, no wheezes, rales, or rhonchi. No r espiratory distress. HEART: Regular rate and rhythm. No murmur Chest: No crepitus felt, no erythema or ecchymosis noted anterior posterior chest wall. ABDOMEN: Soft, non-tender. Non-distended. Bowel sounds present in all 4 quadrants. EXTREMITIES: Moves all 4 extremities spontaneously. No edema, normal radial and dorsalis pedis pulses bilaterally. No cyanosis. 5 out of 5 strength noted all 4 extremities. Patient has full range of motion of left shoulder, although with pain in her scapula and mid axillary region. Patient states the pain somewhat subsides when she is sitting still. BACK: no cervical, thoracic, lumbar midline tenderness. No saddle anesthesia, normal distal neurovascular exam. NEUROLOGICAL: Alert and oriented x3. Normal speech. cranial nerves II through XII grossly intact. PSYCH: Normal affect, normal mood. SKIN: Warm, dry, normal turgor. No rashes or lesions noted. Course - Re-evaluation Re-evalutation: Laboratory 12/20/18 12/20/18 12/20/18 13:30 13:30 13:30 WBC 13.8 H RBC 5.67 H Hgb 13.4 Hct 41.4 MCV 73 L MCH 23.6 L MCHC 32.3 RDW 16.7 H Plt Count 256 Lymph % (Auto) 25.5 [place] % (Auto) 12.6 Eos % (Auto) 0.2 Baso % (Auto) 0.9 Absolute Neuts (auto) 8.4 H Absolute Lymphs (auto) 3.5 Absolute Monos (auto) 1.7 H Absolute Eos (auto) 0.0 Absolute Basos (auto) 0.1 Seg Neutrophils % 60.8 PT 13.7 INR 1.05 APTT 33.4 Sodium 137.5 Potassium 4.5 Chloride 99 Carbon Dioxide 26 Anion Gap 13 BUN 20 Creatinine 1.00 Est GFR ( Amer) > 60 Est GFR (MDRD) Non-Af 54 L Glucose 200 H Calcium 9.7 Total Bilirubin 1.3 Direct Bilirubin 0.2 Neonat Total Bilirubin Not Reportable Neonat Direct Bilirubin Not Reportable Neonat Indirect Bili Not Reportable AST 26 ALT 13 Alkaline Phosphatase 63 Creatine Kinase 178 H CK-MB (CK-2) Troponin I Total Protein 7.7 Albumin 4.5 12/20/18 13:30 WBC RBC Hgb Hct MCV MCH MCHC RDW Plt Count Lymph % (Auto) [place] % (Auto) Eos % (Auto) Baso % (Auto) Absolute Neuts (auto) Absolute Lymphs (auto) Absolute Monos (auto) Absolute Eos (auto) Absolute Basos (auto) Seg Neutrophils % PT INR APTT Sodium Potassium Chloride Carbon Dioxide Anion Gap BUN Creatinine Est GFR ( Amer) Est GFR (MDRD) Non-Af Glucose Calcium Total Bilirubin Direct Bilirubin Neonat Total Bilirubin Neonat Direct Bilirubin Neonat Indirect Bili AST ALT Alkaline Phosphatase Creatine Kinase CK-MB (CK-2) 1.56 Troponin I < 0.012 Total Protein Albumin Chest X-Ray 12/20/18 13:18 IMPRESSION: NO ACUTE RADIOGRAPHIC FINDING IN THE CHEST. Initial labs and imaging ordered by E provider. I do not feel as though this is cardiac in nature as the pain is reproducible and increases in her left scapula with rotation of her left shoulder. Troponin that was obtained is n egative. Patient's EKG shows a sinus rhythm rate of 74, QTc 435, no ST segment elevations or depressions noted. I have had a lengthy discussion with patient about her contract with pain management. I have discussed treating her acute pain in the emergency department. Patient voices understanding and states she will call pain management in the morning. Discussed use of moist heat and exercises. At this time will discharge with return precautions and follow-up recommendations. Verbal discharge instructions given a the bedside and opportunity for questions given. Medication warnings reviewed. Patient is in agreement with this plan and has verbalized understanding of return precautions and the need for primary care follow-up in the next 24-72 hours. This medical record was dictated with voice recognizing software. There may be grammatical, syntax errors that are unintended. - Vital Signs Vital signs: Temp Pulse Resp BP Pulse Ox 97.9 F 77 16 136/79 H 93 12/20/18 12:31 12/20/18 12:31 12/20/18 12:31 12/20/18 12:31 12/20/18 12:31 - Laboratory Result Diagrams: 12/20/18 13:30 12/20/18 13:30 Laboratory results interpreted by me: 12/20/18 12/20/18 13:30 13:30 WBC 13.8 H RBC 5.67 H MCV 73 L MCH 23.6 L RDW 16.7 H Absolute Neuts (auto) 8.4 H Absolute Monos (auto) 1.7 H Est GFR (MDRD) Non-Af 54 L Glucose 200 H Creatine Kinase 178 H Discharge - Discharge Clinical Impression: Left shoulder pain Qualifiers: Chronicity: acute Qualified Code(s): M25.512 - Pain in left shoulder Condition: Stable Disposition: HOME, SELF-CARE Instructions: Chest Wall Pain ([facility]) Additional Instructions: As we discussed you have been seen and treated in the emergency department for pain in your left under arm and scapula. I feel as though this is muscular pain. It increases when you move and when I touch it. Like we discussed you should continue to follow-up with pain management. Please also follow-up with your primary care provider in the next 24 to 48 hours. Return to the emergency room for any further concerns. Referrals: FRANCIE JO PA-C [NO LOCAL MD] - Follow up as needed
[2018-12-20 20:08] VITALS: BP 152/88
--- NOTE | 2018-12-21 08:48 | EKG REPORT ---
SEVERITY:- ABNORMAL ECG - SINUS RHYTHM PROBABLE LVH WITH SECONDARY REPOL ABNRM : Confirmed by: Fouzia Degroot MD 21-Dec-2018 08:47:46
== END 2018-12-20 18:00 | disposition home or self-care (01) ==
LOC: ER 12:27
DX: M25.512 Pain in left shoulder (principal); R07.9 Chest pain, unspecified; M79.602 Pain in left arm; Z88.6 Allergy status to analgesic agent
CPT/HCPCS: 93005; 99284; 36415; 82553; 82550; 85025; 85610; 85730; 80053; 84484; 71046; 93010; A9270